=== PATIENT | female | born 2000 | race Caucasian/White ===

== ENCOUNTER 2019-12-09 21:10 | Emergency (ER) | payer OTHER ==
[2019-12-09] MEDS ORDERED: ACETAMINOPHEN 325 MG TABLET PO ONE (21:55)
--- NOTE | 2019-12-09 22:30 | ER Document Report ---
Entered by CARLOS PERES SCRIBE 12/09/19 [id number] Acting as scribe for:BRITTNEY DUNN DO ED General - General Chief Complaint: Chest Pain Stated Complaint: CHEST PAIN AND COUGH Time Seen by Provider: 12/09/19 21:32 Mode of Arrival: Ambulatory Information source: Patient Notes: This 19 year old, otherwise healthy female presents to the ED today with complaints of dry cough with associated reproducible chest wall pain for the past x2 days. She also reports back pain localized between her shoulder blades. She denies any sick contacts with the exception of her 5-month old who has tested negative for RSV and influenza. She denies any chronic illness or recent travel. She reports having a control implant in September 2019. Past Medical History - General Information source: Patient - Social History Smoking Status: Unknown if Ever Smoked Cigarette use (# per day): No Chew tobacco use (# tins/day): No Smoking Education Provided: No Lives with: Family Family History: Reviewed & Not Pertinent Patient has suicidal ideation: No Patient has homicidal ideation: No - Medical History Medical History: Negative Surgical Hx: Negative Review of Systems - Review of Systems Constitutional: No symptoms reported EENT: No symptoms reported Cardiovascular: See HPI, Chest pain - reproducible Respiratory: See HPI, Cough Gastrointestinal: No symptoms reported Genitourinary: No symptoms reported Female Genitourinary: No symptoms reported Musculoskeletal: No symptoms reported Skin: No symptoms reported Hematologic/Lymphatic: No symptoms reported Neurological/Psychological: No symptoms reported -: Yes All other systems reviewed and negative Physical Exam - Vital signs Vitals: Temp Pulse Resp BP Pulse Ox 98.4 F 75 16 117/67 99 12/09/19 21:51 12/09/19 21:51 12/09/19 21:51 12/09/19 21:51 12/09/19 21:51 Interpretation: Normal - General General appearance: Appears well, Alert In distress: None - HEENT Head: Normocephalic, Atraumatic Eyes: Normal Pupils: PERRL - Respiratory Respiratory status: No respiratory distress Chest status: Tender - Mild reproducible chest wall tenderness with palpation Breath sounds: Normal Chest palpation: Normal - Cardiovascular Rhythm: Regular Heart sounds: Normal auscultation Murmur: No Friction rub: No Gallop: None auscultated - Abdominal Inspection: Normal Distension: No distension Bowel sounds: Normal Tenderness: Nontender - Abdomen soft Organomegaly: No organomegaly - Back Back: Tender - Palpable reproducible back tenderness between the shoulder blades - Extremities General upper extremity: Normal inspection General lower extremity: Normal inspection - Neurological Neuro grossly intact: Yes [place] Coma Scale Eye Opening: Spontaneous [place] Coma Scale Verbal: Oriented [place] Coma Scale Motor: Obeys Commands [place] Coma Scale Total: 15 - Psychological Associated symptoms: Normal affect, Normal mood - Skin Skin Temperature: Warm Skin Moisture: Dry Skin Color: Normal Course - Re-evaluation Re-evalutation: 12/09/19 23:02 MDM 19 year old wiht cough and some soreness in chest with cough that is nonproductive. Well appearing with nl vitals. Discussed treatment and followup and she expressed understanding. - Vital Signs Vital signs: Temp Pulse Resp BP Pulse Ox 98.3 F 75 16 117/67 99 12/09/19 23:01 12/09/19 21:51 12/09/19 21:51 12/09/19 21:51 12/09/19 21:51 - Diagnostic Test Radiology reviewed: Image reviewed Discharge - Discharge Clinical Impression: Chest wall pain, Cough Condition: Good Disposition: HOME, SELF-CARE Instructions: Acetaminophen, Chest Wall Pain ([facility]) Additional Instructions: Take tylenol for pain. Use the albuterol every 6 hours as needed for cough. Return here for any problems or concerns including but not limited to chest pain or shortness of breath. I personally performed the services described in the documentation, reviewed and edited the documentation which was dictated to the scribe in my presence, and it accurately records my words and actions.
--- NOTE | 2019-12-09 23:02 | RADIOLOGY REPORT (SQ) ---
EXAM DESCRIPTION: XR CHEST 1 VIEW COMPLETED DATE/TME: 12/09/2019 21:54 CLINICAL HISTORY: 19 years Female cough COMPARISON: None. FINDINGS: The cardiomediastinal silhouette appears unremarkable. No consolidating infiltrates or pleural effusions. No pneumothorax. IMPRESSION: No acute abnormality is identified.
[2019-12-09 23:32] VITALS: BP 122/64
== END 2019-12-09 23:32 | disposition home or self-care (01) ==
LOC: ER 21:10
DX: R07.89 Other chest pain (principal); R05 Cough; M54.6 Pain in thoracic spine
CPT/HCPCS: 71045; 99283